=== PATIENT | male | born 1990 | race Caucasian/White ===

== ENCOUNTER → 2016-06-05 | Outpatient (CLI) | payer OTHER ==
--- NOTE | 2016-06-05 17:37 | RAD ---
HISTORY: Chronic bilateral knee pain. Recent fall. Pain right side. Study: Right knee three views Comparison: None. Findings: There is no evidence for acute cortical disruption or dislocation. The medial and lateral tibiofemo ral compartments are unremarkable without significant joint space narrowing. The lateral radiograph fails to demonstrate significant joint effusion. Patellofemoral compartment is normal in appearanc e. IMPRESSION: 1. Negative exam. Reported By:
--- NOTE | 2016-06-05 17:55 | RAD ---
HISTORY: Fall off porch 2 weeks ago. Study: Right ankle three views Comparison: None. Findings: No acute cortical disruption or dislocation can be identified. The ankle mortise remains well align ed. No significant soft tissue swelling or injury can be seen. The visualized portions of the talu s and calcaneus are unremarkable. IMPRESSION: 1. Negative exam. Reported By:
--- NOTE | 2016-06-05 17:56 | RAD ---
HISTORY: Chronic back pain for years. No new injury. Study: Lumbar spine 3 views Comparison: None. Findings: There is no evidence of acute fracture or subluxation. Vertebral body heights and alignment are with in normal limits. Intervertebral disc spaces are well preserved. The spinous process are intact. N o significant soft tissue abnormalities are identified. IMPRESSION: 1. No evidence of acute osseous injury to the lumbar spine. Reported By:
--- NOTE | 2016-06-05 17:58 | RAD ---
HISTORY: Fall off porch 2 weeks ago. Pain swelling and bruising. Study: Right foot three views Comparison: None. Findings: No acute cortical disruption or dislocation can be identified. No significant soft tissue swelling or injury can be seen. The visualized portions of the talus and calcaneus are unremarkable. IMPRESSION: 1. Negative exam. Reported By:
--- NOTE | 2016-06-05 19:07 | RAD ---
HISTORY: Pain Study: Left knee series Comparison: None Findings: No evidence for acute cortical disruption or dislocation. The medial and lateral tibiofemoral dagmar rtments appear unremarkable without loss of significant joint space. The lateral radiograph fails t o demonstrate significant joint effusion. Patellofemoral compartment is normal in its appearance. IMPRESSION: 1. Negative exam. Reported By:
--- NOTE | 2016-06-05 19:10 | RAD ---
HISTORY: Pain Study: AP and lateral views Comparison: None Findings: Normal alignment of the thoracic spine is maintained. This mild disc space narrowing throughout wit hout significant endplate sclerosis. No evidence for acute fracture can be identified. There is mil d scoliosis. IMPRESSION: Mild disc space narrowing throughout and mild scoliosis with no acute abnormality seen. Reported By:
--- NOTE | 2016-06-06 07:47 | RAD ---
HISTORY: Chronic neck pain Study: Cervical spine three view Comparison: None Findings: The prevertebral soft tissues are normal. The alignment is normal. The vertebral bodies are of avera ge height. The disc spaces are preserved. The posterior elements are intact The joints are normal. IMPRESSION: No significant abnormality Reported By:
== END ==
LOC: RAD 15:57
PROVIDERS: ATTEND Nurse Practitioner Family
DX: M25.561 Pain in right knee (principal); M25.562 Pain in left knee; M25.571 Pain in right ankle and joints of right foot; M54.2 Cervicalgia; M54.5 Low back pain; M54.6 Pain in thoracic spine
CPT/HCPCS: 72040; 72072; 72100; 73560; 73610; 73630